=== PATIENT | female | born 1950 | race Caucasian/White ===

== ENCOUNTER → 2016-11-17 | Day surgery (SDC) | payer OTHER, BC ==
[2016-11-09 07:36] VITALS: Ht 161.3 cm; Wt 45.9 kg
[~2016-11-17] VITALS: Ht 161.3 cm; Wt 45.9 kg
[~2016-11-17] MED LIST: CALC600T9 PO; CHOL1000 PO; LIDOCAINE HCL 2% 2 ML VIAL (20MG/ML) ONE; MAGN250T9 PO; PHENYLEPHRINE HCL INJ 10 MG/ML VIAL ONE; PROPOFOL IV EMULSION 10 MG/ML 20 ML VIAL IV ONE; SODIUM CHLORIDE 0.9% 500ML 500 ML IV ONE
--- NOTE | 2016-11-17 16:01 | Endo History and Physical ---
History & Physical Date of Service: Nov 17, 2016. Chief Complaint: FAMILY HISTORY OF COLON CANCER IN MOTHER Referring Physician: LIANA PATEL History of Present Illness 66 yo CF who presents for colonoscopy secondary to family history of colon cancer. Past Surgical History Hx Cardiac Surgery: No Hx Internal Defibrillator: No Hx Pacemaker: No Hx Abdominal Surgery: Yes (OOPHORECTOMY) Hx of Implantable Prosthesis: No Hx Post-Op Nausea and Vomiting: No Hx Cancer Surgery: No Hx Thoracic Surgery: No Hx Orthopedic: No Hx Urinary Tract Surgery: No Family History Colon CA Social History Smoking Status: Never Smoker Hx Substance Use: No Hx Alcohol Use: No Allergies Coded Allergies: No Known Allergies (Unverified , 11/17/16) Current Medications Reported Home Medications Medications Dose Route/Sig Max Daily Dose Days Date Category Vitamin D3 (Cholecalciferol) 1,000 Unit Tab 1 Tab PO QAM 11/09/16 Reported Calcium + D (Calcium Carbonate-Vitamin D) 1 Tab Tab 1 Tab PO QAM 11/09/16 Reported Magnesium 250 Mg Tab 1 Tab PO QAM 11/09/16 Reported Vital Signs Weight (Kilograms): 45.91 Height (Feet): 5 Height (Inches): 3.5 Date Time Temp Pulse Resp B/P Pulse Ox O2 Delivery O2 Flow Rate FiO2 11/17/16 14:52 36.4 93 16 139/72 98 Room Air Physical Exam General Appearance: WD/WN, no apparent distress Respiratory/Chest: Auscultation: breath sounds normal Cardiovascular: Heart Auscultation: RRR Abdomen: Bowel Sounds: normal Inspection & Palpation: soft, non-distended, no tenderness, guarding & rebound Assessment and Plan Assessment: 66 yo CF who presents for colonoscopy secondary to family history of colon cancer. Plan: Proceed with colonoscopy.
--- NOTE | 2016-11-17 16:27 | Discharge Instructions ---
Endoscopy Patient Instructions Date / Procedure(s) Performed Nov 17, 2016. Colonoscopy Allergy Information Coded Allergies: No Known Allergies (Unverified , 11/17/16) Discharge Date / Findings Nov 17, 2016. Colon polyp Diverticulosis Internal hemorrhoids Medication Instructions OK to resume all medications today as prescribed Reported Home Medications Medications Dose Route/Sig Max Daily Dose Days Date Category Vitamin D3 (Cholecalciferol) 1,000 Unit Tab 1 Tab PO QAM 11/09/16 Reported Calcium + D (Calcium Carbonate-Vitamin D) 1 Tab Tab 1 Tab PO QAM 11/09/16 Reported Magnesium 250 Mg Tab 1 Tab PO QAM 11/09/16 Reported Provider Instructions Activity Restrictions - No exercising or heavy lifting for 24 hours. - Do not drink alcohol the day of the procedure. - Do not drive a car or operate machinery until the day after the procedure. - Do not make any important decisions or sign important papers in 24 hours after the procedure. Following Day: - Return to full activity which may include returning to work/school. Diet Start your diet with liquids and light foods (jello, soup, juice, toast). Then eat your usual diet if not nauseated. Treatment For Common After Affects For mild abdominal pain, bloating, or excessive gas: - Rest - Eat lightly - Lie on right side Follow-Up Information Follow-up with LIANA PATEL as scheduled Anesthesia Information What You Should Know You have had a procedure that required some medicine to reduce anxiety and discomfort. This treatment is called moderate sedation. After receiving the treatment, you may be sleepy, but you will be able to breathe on your own. The effects of the treatment may last for several hours. Follow these instructions along with Activity/Diet recommendations noted above: * Do NOT do anything where dizziness or clumsiness would be dangerous. * Rest quietly at home today, then you can be up and about tomorrow. * Have a responsible person stay with you the rest of today. * You may have had an I.V. today. If so, you may take the dressing off later today. Recommendations Call your doctor if: * Trouble breathing * Continuous vomiting for more than 24 hours * Temperature above 101 degrees * Severe abdominal pain or bloating * Pain not relieved by pain medicine ordered * There is increased drainage or redness from any incision * A large amount of rectal bleeding greater than 2-3 tablespoons. (If you had a polyp/s removed or have hemorrhoids, a small amount of blood - from the rectum is to be expected.) * You have any unanswered questions or concerns. IN THE EVENT OF A SERIOUS EMERGENCY, GO TO THE NEAREST EMERGENCY ROOM Your discharge instructions were prepared by provider Jonathan Grace. Patient Instructions Signature Page Tihsa Castillo Patient (or Guardian) Signature/Date: I have read and understand the instructions given to me by my caregivers. Caregiver/RN/Doctor Signature/Date: The above-named patient and/or guardian has received patient instructions on this date. + Original Patient Signature Page (only) stays with chart. Please make copy for patient.
--- NOTE | 2016-11-17 16:30 | GI REPORT ---
Procedure Date: 11/17/2016 3:54 PM Procedure: Colonoscopy Indications: Family history of colon cancer in a first-degree relative Medicines: Monitored Anesthesia Care Complications: No immediate complications. Estimated Blood Loss: Estimated blood loss: none. Procedure: Pre-Anesthesia Assessment: - Prior to the procedure, a History and Physical was performed, and patient medications and allergies were reviewed. The patient's tolerance of previous anesthesia was also reviewed. The risks and benefits of the procedure and the sedation options and risks were discussed with the patient. All questions were answered, and informed consent was obtained. Prior Anticoagulants: The patient has taken no previous anticoagulant or antiplatelet agents. ASA Grade Assessment: II - A patient with mild systemic disease. After reviewing the risks and benefits, the patient was deemed in satisfactory condition to undergo the procedure. After I obtained informed consent, the scope was passed under direct vision. Throughout the procedure, the patient's blood pressure, pulse, and oxygen saturations were monitored continuously. The scope was introduced through the anus and advanced to the terminal ileum. The colonoscopy was performed without difficulty. The patient tolerated the procedure well. The quality of the bowel preparation was good. The terminal ileum, ileocecal valve, appendiceal orifice, and rectum were photographed. Findings: A 8 mm polyp was found in the ascending colon. The polyp was sessile. The polyp was removed with a hot snare. Resection and retrieval were complete. Multiple small-mouthed diverticula were found in the sigmoid colon. Non-bleeding internal hemorrhoids were found during retroflexion. The hemorrhoids were small. Impression: - One 8 mm polyp in the ascending colon, removed with a hot snare. Resected and retrieved. - Diverticulosis in the sigmoid colon. - Non-bleeding internal hemorrhoids. Recommendation: - Resume previous diet. - Continue present medications. - Repeat colonoscopy for surveillance based on pathology results. - Return to primary care physician as previously scheduled. Jonathan Grace DO 11/17/2016 4:29:05 PM This report has been signed electronically. Note Initiated On: 11/17/2016 3:54 PM I attest to the content of the Intraoperative Record and orders documented therein, exceptions below
--- NOTE | 2016-11-17 16:47 | Anesthesiology Progress Note ---
Anesthesia Post Op Note Date & Time Nov 17, 2016 at 16:46 Vital Signs Pain Intensity: 0 Vital Signs Past 12 Hours Date Time Temp Pulse Resp B/P Pulse Ox O2 Delivery O2 Flow Rate FiO2 11/17/16 16:42 87 20 101/60 100 Room Air 11/17/16 16:25 82 20 118/63 96 Room Air 11/17/16 14:52 36.4 93 16 139/72 98 Room Air Notes Mental Status: alert / awake / arousable, participated in evaluation Pt Amnestic to Procedure: Yes Nausea / Vomiting: adequately controlled Pain: adequately controlled Airway Patency, RR, SpO2: stable & adequate BP & HR: stable & adequate Hydration State: stable & adequate Anesthetic Complications: no major complications apparent
[2016-11-17 16:56] VITALS: BP 128/100; PULSE 87; O2SAT 100
== END | disposition home or self-care (01) ==
LOC: C.GI 14:28
PROVIDERS: ATTEND Internal Medicine
DX: Z12.11 Encounter for screening for malignant neoplasm of colon (principal); Z80.0 Family history of malignant neoplasm of digestive organs; D12.2 Benign neoplasm of ascending colon; K57.30 Diverticulosis of large intestine without perforation or abscess without bleeding; K64.8 Other hemorrhoids

== ENCOUNTER → 2016-12-09 | Outpatient (CLI) | payer OTHER, BC ==
[~2016-12-09] MED LIST changes: -LIDOCAINE HCL 2% 2 ML VIAL (20MG/ML) ONE; -PHENYLEPHRINE HCL INJ 10 MG/ML VIAL ONE; -PROPOFOL IV EMULSION 10 MG/ML 20 ML VIAL IV ONE; -SODIUM CHLORIDE 0.9% 500ML 500 ML IV ONE
--- NOTE | 2016-12-09 15:40 | MAMMOGRAPHY REPORT ---
BILATERAL DIGITAL SCREENING MAMMOGRAM WITH CAD: 12/09/2016 CLINICAL HISTORY: Routine screening. Patient has no complaints. TECHNIQUE: Current study was also evaluated with a Computer Aided Detection (CAD) system. Bilatera l CC and MLO views were obtained. COMPARISON: Comparison is made to exams dated: 12/05/2015 mammogram, 12/03/2013 mammogram, 07/27/2012 m ammogram, 01/27/2011 mammogram, 06/17/2009 mammogram - [facility], and 04/04/2008. BREAST COMPOSITION: The tissue of both breasts is heterogeneously dense, which may obscure small ma sses. FINDINGS: No suspicious masses, calcifications, or areas of architectural distortion are noted in e ither breast. There has been no significant interval change compared to prior exams. Scattered bilat eral benign-appearing calcifications are not significantly changed. Patchy bilateral asymmetries ar e stable, including an asymmetry in the left superior posterior breast on the MLO view which is stab le compared to prior exams including the 2013 and 2011 exam. IMPRESSION: ACR BI-RADS CATEGORY 2: BENIGN There is no mammographic evidence of malignancy. A 1 year screening mammogram is recommended. The p atient will receive written notification of the results. Approximately 10% of breast cancers are not detected with mammography. A negative mammographic repor t should not delay biopsy if a clinically suggestive mass is present. Herlinda Taylor M.D. /:12/09/2016 08:52:32 Skiver Welt End: Dyana DURON)(Saida), [facility] letter sent: Normal 1/2 BI-RADS Code: ACR BI-RADS Category 2: Benign
== END | disposition home or self-care (01) ==
LOC: C.MAMM 08:28
PROVIDERS: ATTEND Nurse Practitioner
DX: Z12.31 Encounter for screening mammogram for malignant neoplasm of breast (principal)

== ENCOUNTER → 2017-11-25 | Outpatient (CLI) | payer OTHER, BC ==
[2017-11-25 17:35] LABS: BASO % 0.2 %; BASO ABS # 0.01 K/uL (0-0.2); EOS % 0.4 %; EOS ABS # 0.02 K/uL (0-0.5); HEMATOCRIT 37.1 % (37-47); HEMOGLOBIN 12.5 g/dL (12.0-16.0); IG# 0.01 K/uL (0.00-0.02); LYMPH ABS # 0.87 K/uL (1.2-3.4); MEAN CELL VOLUME 94.9 fL (80-100); MEAN CORPUSCULAR HGB CONC 33.7 g/dl (32-36); MEAN PLATELET VOLUME 11.6 fL (7.4-10.4); MONO % 14.1 %; MONO ABS # 0.68 K/uL (0.11-0.59); NEUT % 67.1 %; NEUT ABS # 3.24 K/uL (1.4-6.5); PLATELET COUNT 163 K/uL (130-400); RED CELL DISTRIBUTION WIDTH CV 14.2 % (11.5-14.5); RED CELL DISTRIBUTION WIDTH SD 48.9 fL (36.4-46.3); WHITE BLOOD COUNT 4.83 K/uL (4.8-10.8)
[2017-11-25 18:07] LABS: BLOOD UREA NITROGEN 14 mg/dl (7-18); CALCIUM 8.7 mg/dl (8.5-10.1); CARBON DIOXIDE 30 mmol/L (21-32); CREATININE 1.41 mg/dl (0.60-1.20); GLUCOSE 116 mg/dl (70-99); SODIUM 141 mmol/L (136-145)
== END | disposition home or self-care (01) ==
LOC: C.LABPVFM 13:28
PROVIDERS: ATTEND Nurse Practitioner
DX: R55 Syncope and collapse (principal)

== ENCOUNTER → 2017-11-29 | Outpatient (CLI) | payer OTHER, BC ==
[2017-11-29 14:05] LABS: BLOOD UREA NITROGEN 15 mg/dl (7-18); CALCIUM 9.1 mg/dl (8.5-10.1); CARBON DIOXIDE 27 mmol/L (21-32); GLUCOSE 84 mg/dl (70-99); POTASSIUM 3.9 mmol/L (3.5-5.1); SODIUM 139 mmol/L (136-145)
== END | disposition home or self-care (01) ==
LOC: C.LABPVFM 10:12
PROVIDERS: ATTEND Nurse Practitioner
DX: R55 Syncope and collapse (principal); R74.8 Abnormal levels of other serum enzymes; R53.83 Other fatigue; R78.89 Finding of other specified substances, not normally found in blood

== ENCOUNTER → 2017-12-14 | Outpatient (CLI) | payer OTHER, BC ==
--- NOTE | 2017-12-14 15:24 | MAMMOGRAPHY REPORT ---
BILATERAL DIGITAL SCREENING MAMMOGRAM TOMOSYNTHESIS WITH CAD: 12/14/2017 CLINICAL HISTORY: Routine screening. Patient has no complaints. TECHNIQUE: Breast tomosynthesis in addition to standard 2D mammography was performed. Current study was also evaluated with a Computer Aided Detection (CAD) system. COMPARISON: Comparison is made to exams dated: 12/09/2016 mammogram, 12/05/2015 mammogram, 12/03/2013 abdi mogram, 07/27/2012 mammogram, 01/27/2011 mammogram, and 06/17/2009 mammogram - [facility]. BREAST COMPOSITION: The tissue of both breasts is heterogeneously dense, which may obscure small mas ses. FINDINGS: A nodular asymmetry in the superior posterior left breast on the MLO view appears very deepa lar to the 01/27/2011 mammogram, suggesting normal overlapping tissue. There are scattered benign rim calcifications bilaterally. Grouping of punctate microcalcifications in the upper inner posterior r ight breast appears stable on all available prior mammograms dating back to at least 2007, therefore likely benign. No new suspicious mass, architectural distortion or cluster of microcalcifications is seen. IMPRESSION: ACR BI-RADS CATEGORY 1: NEGATIVE There is no mammographic evidence of malignancy. A 1 year screening mammogram is recommended. The pa tient will receive written notification of the results. Approximately 10% of breast cancers are not detected with mammography. A negative mammographic report should not delay biopsy if a clinically suggestive mass is present. Vicenta Faust M.D. ay/:12/14/2017 13:26:49 Retail Department Supervisor: Lidia WATTS(R)(M), [facility] letter sent: Normal 1/2 BI-RADS Code: ACR BI-RADS Category 1: Negative
== END | disposition home or self-care (01) ==
LOC: C.MAMM 12:57
PROVIDERS: ATTEND Nurse Practitioner
DX: Z12.31 Encounter for screening mammogram for malignant neoplasm of breast (principal)

== ENCOUNTER 2018-03-02 20:58 | Emergency (ER) | payer OTHER, BC ==
[~2018-03-02] VITALS: Ht 160 cm; Wt 45.5 kg
[2018-03-02 21:08] VITALS: TEMP 37.2; Ht 160 cm; Wt 45.5 kg
[2018-03-02] MEDS ORDERED: OXYCODONE HCL IR 5 MG TAB (IMMEDIATE RELEASE) PO STA (21:42)
--- NOTE | 2018-03-02 22:23 | DIAGNOSTIC IMAGING REPORT ---
LEFT ANKLE 3 VIEWS CLINICAL HISTORY: Left ankle pain. FINDINGS: 3 views of the left ankle are obtained. No prior studies are available for comparison at the time of dictation. The skeletal structures are osteopenic. No fracture is seen. The ankle mortise is intact. There is a joint effusion and soft tissue swelling is present around the ankle. IMPRESSION: Joint effusion and soft tissue swelling. No left ankle fracture is seen. Electronically signed by: Alan Mack M.D. 03/02/2018 10:22 PM Dictated Date/Time: 03/02/2018 10:21 PM
--- NOTE | 2018-03-02 22:24 | DIAGNOSTIC IMAGING REPORT ---
LEFT FOOT 3 VIEWS CLINICAL HISTORY: Left foot pain. FINDINGS: 3 views of the left foot are obtained. No prior studies are available for comparison at the time of dictation. The skeletal structures are osteopenic. No fracture is seen. The joint spaces are preserved. Mild soft tissue swelling is present around the ankle. The soft tissues of the foot are normal as imaged. IMPRESSION: No acute osseous abnormality is identified. Electronically signed by: Alan Mack M.D. 03/02/2018 10:23 PM Dictated Date/Time: 03/02/2018 10:22 PM
[2018-03-02 23:03] VITALS: BP 120/68; PULSE 83; O2SAT 96
[2018-03-02] MEDS ORDERED: OXYCODONE IR HOME PACK PO ONE (23:15)
--- NOTE | 2018-03-02 23:33 | EMERGENCY ROOM VISIT NOTE ---
History First contact with patient: 21:17 Chief Complaint: FOOT PAIN Stated Complaint: LT FOOT HIT BY ROCK, FOOT SWOLLEN, UNABLE TO WALK History of Present Illness The patient is a 67 year old female who presents to the Emergency Room with complaints of severe left ankle, leg and foot pain. The patient was mowing her lawn with a push mower this afternoon when she accidentally picked up a landscaping stone that was thrown from under the deck, and hit her left ankle. The patient reports immediate onset of pain. The patient reports that she continued with yard work for an additional 3 hours with escalating pain. The patient now reports he cannot put weight on the foot because of the pain, rating her discomfort an 8 out of 10. She denies any paresthesias or numbness of the foot or toes. She denies any prior history of left lower extremity injury. Tetanus immunization is up-to-date. Review of Systems 10 system review was performed and was negative except for pertinent positives and negatives as indicated in history of present illness Past Medical/Surgical History Medical Problems: (1) Carpal Tunnel Syndrome (2) Diverticulosis Colon (W/O Ment Of Hemorrhage) (3) Osteoporosis, unspecified (4) Vitamin D Deficiency, Unspecified Surgical Problems: (1) History of oophorectomy Family History FH: GI cancer Social History Smoking Status: Never Smoker Alcohol Use: none Marital Status: Occupation Status: retired Current/Historical Medications Scheduled Calcium Carbonate-Vitamin D (Calcium + D), 1 TAB PO QAM Cholecalciferol (Vitamin D3), 1 TAB PO QAM Magnesium (Magnesium), 1 TAB PO QAM Physical Exam Vital Signs Date Time Temp Pulse Resp B/P (MAP) Pulse Ox O2 Delivery O2 Flow Rate FiO2 03/02/18 23:03 83 14 120/68 96 Room Air 03/02/18 21:08 37.2 78 18 122/74 99 Room Air Physical Exam CONSTITUTIONAL: Healthy and well nourished. Alert and oriented X 3 with positive affect. Patient appears in moderately severe discomfort. HEENT: Normocephalic, atraumatic. Pupils equal, round and reactive. NECK: Full active range of motion without discomfort. MUSCULOSKELETAL: Examination shows a superficial abrasion, soft tissue edema and ecchymosis over the left anterior ankle. She has worsening discomfort with any attempted palpation of the distal anterior leg, ankle or dorsal foot. The patient is unable to tolerate any passive range of motion of the ankle joint. Negative anterior draw. Pedal pulses are intact. INTEGUMENTARY: No rash or other significant dermatologic conditions noted. NEUROLOGIC: Left foot and toes are sensory intact. Medical Decision & Procedures ER Provider Diagnostic Interpretation: My interpretation of left ankle and foot x-rays does not show any obvious fractures, dislocation avulsions or radiopaque foreign bodies within the soft tissue. A joint effusion is appreciated. Radiologist report is as follows: LEFT ANKLE 3 VIEWS CLINICAL HISTORY: Left ankle pain. FINDINGS: 3 views of the left ankle are obtained. No prior studies are available for comparison at the time of dictation. The skeletal structures are osteopenic. No fracture is seen. The ankle mortise is intact. There is a joint effusion and soft tissue swelling is present around the ankle. IMPRESSION: Joint effusion and soft tissue swelling. No left ankle fracture is seen. LEFT FOOT 3 VIEWS CLINICAL HISTORY: Left foot pain. FINDINGS: 3 views of the left foot are obtained. No prior studies are available for comparison at the time of dictation. The skeletal structures are osteopenic. No fracture is seen. The joint spaces are preserved. Mild soft tissue swelling is present around the ankle. The soft tissues of the foot are normal as imaged. IMPRESSION: No acute osseous abnormality is identified. Medications Administered Medications (Trade) Dose Ordered Sig/Mac Route Start Time Stop Time Status Last Admin Dose Admin Oxycodone HCl (Roxicodone Immediate Rel Tab) 5 mg NOW STAT PO 03/02/18 21:42 03/02/18 21:44 DC 03/02/18 22:09 5 MG Oxycodone HCl (Roxicodone Immediate Rel 5MG Home Pack) 1 homepack UD ONCE PO 03/02/18 23:15 03/02/18 23:16 DC 03/02/18 23:22 1 HOMEPACK ED Course Patient history and physical exam were performed. Nurse's notes were reviewed. Vital signs were reviewed and normal. The patient is in notable distress on initial exam. An ice pack was applied. The patient was administered OxyIR 5 mg for pain. X-rays of the left ankle and foot were normal. The patient did report reduction of her pain to a 4 out of 10 on final reevaluation. The patient was encouraged to elevate the ankle and foot above her heart, and apply ice for swelling. She was encouraged alternate ibuprofen and Tylenol for baseline pain relief. She will be provided a home pack of OxyIR as needed for breakthrough pain. She was warned about sedation and constipation while taking this medication. She was encouraged to follow-up with her PCP within the next several days, especially if symptoms are not improving. The patient's sister is with her, and reported that she would also try to find a walker for her as well. She was instructed to return to the emergency department for any significantly worsening swelling, redness or other concerning symptoms. The patient was happy with plan of care, and voiced understanding of all discharge instructions. The patient was also seen and examined by Dr. Cevallos, ED attending physician, who agrees with workup and plan of care. Medical Decision [place] Drug Monitoring Program Search Results: patient reviewed within database, no issues identified Medication Reconcilliation Current Medication List: was personally reviewed by me Blood Pressure Screening Patient's blood pressure: Normal blood pressure Impression Primary Impression: Contusion of left ankle Additional Impression: Left ankle effusion Departure Information Dispostion Home / Self-Care Forms HOME CARE DOCUMENTATION FORM, IMPORTANT VISIT INFORMATION Patient Instructions [facility]hyte Additional Instructions Intermittently apply ice and elevate the ankle/foot for swelling and pain. Ibuprofen 600 mg and/or Tylenol 1000 mg every 8 hours. You may also alternate these medications for more effective pain relief: Ibuprofen --4 HRS--> Tylenol --4 HRS--> ibuprofen --4 HRS--> Tylenol .... OxyIR 5 mg every 6 hrs if needed for worse pain. Remember that OxyIR can make you drowsy and constipated. Follow-up with your family doctor if symptoms are not improving within the next 3-5 days. Problem Qualifiers Primary Impression: Contusion of left ankle Encounter type: initial encounter Qualified Codes: S90.02XA - Contusion of left ankle, initial encounter
--- NOTE | 2018-03-03 12:39 | Pharmacy Progress Note ---
ED Pharmacist Progress Note Date of Service: Mar 03, 2018. Received call from [facility] regarding no prescription sent for patient. Per PA-C's note a homepack was provided for patient but no other documentation of a prescription to be sent. Let them know that per the notes no mention of prescription to be sent and plan was for homepack per note. There is documentation homepack was given. [facility] to follow up with patient.
== END 2018-03-02 23:27 | disposition home or self-care (01) ==
LOC: C.EDB 21:00 → C.EDD 23:27
DX: S90.02XA Contusion of left ankle, initial encounter (principal); M25.472 Effusion, left ankle; M81.0 Age-related osteoporosis without current pathological fracture; W22.8XXA Striking against or struck by other objects, initial encounter; Y93.H2 Activity, gardening and landscaping